=== PATIENT | male | born 1975 | race Caucasian/White ===

== ENCOUNTER 2025-08-04 16:21 | Emergency (ER) | payer SELFPAY ==
[2025-08-04] MEDS ORDERED: Acetaminophen 500 MG TAB ONE (16:33)
== END 2025-08-04 17:08 | disposition home or self-care (01) ==
LOC: NAV ERS 16:21
DX: S80.02XA Contusion of left knee, initial encounter (principal); S60.511D Abrasion of right hand, subsequent encounter; S60.512D Abrasion of left hand, subsequent encounter; V00.838A Other accident with motorized mobility scooter, initial encounter
CPT/HCPCS: 99284